=== PATIENT | female | born 1965 | race Caucasian/White ===

== ENCOUNTER 2019-04-17 08:40 | Day surgery (SDC) | payer OTHER ==
[2019-04-17 09:02] LABS: PTT 28.5 SEC (22.9-36.1); Prothrombin Time 13.1 SEC (12.0-14.7)
[2019-04-17 11:38] VITALS: BP 146/81; TEMP 98.2
--- NOTE | 2019-04-17 13:09 | CT ---
CT-guided bone marrow biopsy HISTORY: Leukocytosis. FINDINGS: After explaining the procedure and answering all questions, limited CT imaging of the pelvi s was performed with patient prone. Sterile technique, buffered local anesthesia, CT guidance, and a posterior approach were used to carefully advance an 11-gauge bone biopsy needle to the posterior c ortex of the left iliac bone. Position was confirmed with CT. Blood aspirate was obtained and submitted to pathology. Core bone specimen was then obtained and subm itted to pathology. Postprocedure imaging shows no evidence of complication. Patient tolerated the procedure well and was eventually dismissed in good condition. IMPRESSION: Technically successful CT-guided bone marrow aspiration/biopsy. Pathology is pending.
== END 2019-04-17 12:00 | disposition home or self-care (01) ==
LOC: CT 08:40
PROVIDERS: ATTEND Internal Medicine Hematology & Oncology
PROC: 07DR3ZX Extraction of Iliac Bone Marrow, Percutaneous Approach, Diagnostic (ICD-10-PCS; principal; 2019-04-17)
DX: D72.829 Elevated white blood cell count, unspecified (principal); I10 Essential (primary) hypertension; E11.9 Type 2 diabetes mellitus without complications; E78.5 Hyperlipidemia, unspecified; F41.9 Anxiety disorder, unspecified; E66.9 Obesity, unspecified; Z87.891 Personal history of nicotine dependence
CPT/HCPCS: 20225; 36415; 77012; 85097; 85610; 85730; 88184; 88237; 88305; 88311; 88313

== ENCOUNTER 2019-06-05 09:51 | Outpatient (CLI) | payer OTHER | END 2019-06-05 09:52 | disposition home or self-care (01) | LOC: EKG 09:51 | PROVIDERS: ATTEND Internal Medicine Hematology & Oncology | DX: Z51.81 Encounter for therapeutic drug level monitoring (principal); C92.40 Acute promyelocytic leukemia, not having achieved remission | CPT/HCPCS: 93005; 93010 ==

== ENCOUNTER 2019-06-12 09:22 | Outpatient (CLI) | payer OTHER ==
--- NOTE | 2019-06-12 14:01 | EKG ---
Test Reason : Blood Pressure : / mmHG Vent. Rate : 094 BPM Atrial Rate : 094 BPM P-R Int : 132 ms QRS Dur : 074 ms QT Int : 354 ms P-R-T Axes : 050 012 010 degrees QTc Int : 442 ms Normal sinus rhythm Nonspecific T wave abnormality Abnormal ECG Confirmed by HERMELINDO JUÁREZ (57) on 06/12/2019 2:00:47 PM Referred By: BEKAH Confirmed By:HERMELINDO JUÁREZ
== END 2019-06-12 09:23 | disposition home or self-care (01) ==
LOC: EKG 09:22
PROVIDERS: ATTEND Internal Medicine Hematology & Oncology
DX: Z51.81 Encounter for therapeutic drug level monitoring (principal); C92.40 Acute promyelocytic leukemia, not having achieved remission
CPT/HCPCS: 80053; 83735; 84100; 84550; 93005; 93010

== ENCOUNTER 2019-06-19 09:56 | Outpatient (CLI) | payer OTHER ==
--- NOTE | 2019-06-19 16:36 | EKG ---
Test Reason : Blood Pressure : / mmHG Vent. Rate : 089 BPM Atrial Rate : 089 BPM P-R Int : 140 ms QRS Dur : 074 ms QT Int : 372 ms P-R-T Axes : 027 009 005 degrees QTc Int : 452 ms Normal sinus rhythm Normal ECG When compared with ECG of 12-JUN-2019 10:00, No significant change was found Confirmed by DR. Pamela BAUM (3) on 06/19/2019 4:35:55 PM Referred By: BEKAH Confirmed By:DR. Pamela BAUM
== END 2019-06-19 09:57 | disposition home or self-care (01) ==
LOC: EKG 09:56
PROVIDERS: ATTEND Internal Medicine Hematology & Oncology
DX: Z51.81 Encounter for therapeutic drug level monitoring (principal); C92.40 Acute promyelocytic leukemia, not having achieved remission; Z79.899 Other long term (current) drug therapy
CPT/HCPCS: 80053; 83735; 84100; 93005; 93010

== ENCOUNTER 2019-06-26 09:55 | Outpatient (CLI) | payer OTHER ==
--- NOTE | 2019-07-01 17:43 | EKG ---
Test Reason : Blood Pressure : / mmHG Vent. Rate : 094 BPM Atrial Rate : 094 BPM P-R Int : 132 ms QRS Dur : 072 ms QT Int : 382 ms P-R-T Axes : 057 011 025 degrees QTc Int : 477 ms Normal sinus rhythm Normal ECG When compared with ECG of 19-JUN-2019 10:05, No significant change was found Confirmed by DR. Benji SHAH ([id number]) on 07/01/2019 5:42:50 PM Referred By: BEKAH Confirmed By:DR. Benji SHAH
== END 2019-06-26 09:56 | disposition home or self-care (01) ==
LOC: EKG 09:55
PROVIDERS: ATTEND Internal Medicine Hematology & Oncology
DX: Z51.81 Encounter for therapeutic drug level monitoring (principal); C92.40 Acute promyelocytic leukemia, not having achieved remission; Z79.899 Other long term (current) drug therapy
CPT/HCPCS: 80053; 83735; 84100; 93005; 93010

== ENCOUNTER 2019-07-01 10:51 | Outpatient (CLI) | payer OTHER | END 2019-07-01 10:52 | disposition home or self-care (01) | LOC: EKG 10:51 | PROVIDERS: ATTEND Internal Medicine Hematology & Oncology | DX: Z51.81 Encounter for therapeutic drug level monitoring (principal); C92.40 Acute promyelocytic leukemia, not having achieved remission; D72.818 Other decreased white blood cell count | CPT/HCPCS: 80053; 83735; 84100; 93005; 93010 ==

== ENCOUNTER 2019-07-09 08:04 | Day surgery (SDC) | payer OTHER ==
[2019-07-08 10:21] VITALS: BMI 37.3
[2019-07-09] MEDS ORDERED: Ketorolac Tromethamine 30 MG/ML VIAL ONE (08:39)
[2019-07-09] MEDS ORDERED: Acetaminophen 500 MG TAB ONE (08:39)
[2019-07-09] MEDS ORDERED: Bupivacaine 0.25% HCL 30 ML VIAL ONE ×2 (08:56→12:02)
[2019-07-09] MEDS ORDERED: Lidocaine 1% w/Epinephrine 1:100K 20 ML VIAL ONE (08:56)
[2019-07-09 10:01] LABS: Hemoglobin 11.6 g/dL (12.0-16.0); Mean Corpuscular HGB CONC 32.9 g/dL (32.0-36.0); Mean Corpuscular Hemoglobin 32.1 pg (27.0-31.0); Mean Corpuscular Volume 97.6 fL (78.0-98.0); Mean Platelet Volume 9.1 fL (7.4-10.4); Platelet Count 245 thou/uL (130-400); RBC Distribution Width 15.5 % (11.5-14.5); Red Blood Cell (RBC) Count 3.62 mill/uL (4.20-5.40); White Blood Cell (WBC) Count 3.7 thou/uL (4.8-10.8)
[2019-07-09 10:30] LABS: Anion Gap 12 mmol/L (10-20); BUN (Urea Nitrogen) 8 mg/dL (9.8-20.1); Calc. Creatinine Clearance 154 mL/min (70-130); Calcium 8.7 mg/dL (7.8-10.44); Carbon Dioxide 24 mmol/L (22-29); Chloride 109 mmol/L (98-107); Estimated GFR-MDRD Greater than 90; Glucose 91 mg/dL (70-105); Potassium 4.3 mmol/L (3.5-5.1); Sodium 141 mmol/L (136-145)
[2019-07-09] MEDS ORDERED: Midazolam HCl 2 mg/2 ml Vial ONE (11:35)
[2019-07-09] MEDS ORDERED: Propofol 500 MG/50 ML VIAL ONE (11:43)
[2019-07-09] MEDS ORDERED: Lidocaine 2% PF 5 ML VIAL ONE (12:02)
--- NOTE | 2019-07-09 13:05 | RAD ---
Chest AP view INDICATION: Postop chest for Mediport placement COMPARISON: None FINDINGS: Lungs:The lungs are clear Cardiac silhouette:Heart size is normal. There is a right subclavian chest wall port in place. The ti p of the catheter seen at the caval atrial junction. There is a right-sided PICC line in place. Pulmonary vasculature:Normal Pleural spaces:No pleural effusion or pneumothorax is demonstrated. Upper abdomen:No abnormality seen. Osseous structures: No acute osseous abnormality. Additional findings:None. IMPRESSION: No acute cardiopulmonary abnormality. Right subclavian chest wall port. No pneumothorax. Right-sided PICC line.
--- NOTE | 2019-07-10 00:03 | OP ---
DATE OF PROCEDURE: 07/09/2019 PREOPERATIVE DIAGNOSIS: Leukemia. POSTOPERATIVE DIAGNOSIS: Leukemia. OPERATION PERFORMED: Placement of standard size right subclavian power compatible MediPort. ANESTHESIA: Total intravenous anesthesia with local using 0.25% Marcaine with epinephrine. INDICATIONS: The patient is a 53-year-old white female. She is taken to the operative room at this time for port placement for chemotherapy administration. DESCRIPTION OF OPERATION: Informed consent was obtained. The patient was taken to the operating room where total intravenous anesthesia was obtained with the patient in supine position. Periclavicular area was prepped with ChloraPrep and draped in sterile fashion. Local anesthetic was infiltrated and a large-gauge needle was passed under the clavicle in the subclavian vein. Guidewire was passed through the needle and fluoroscopically confirmed to enter the superior vena cava. Additional local anesthetic was infiltrated and transverse incision was created based on needle insertion site. A subcutaneous pocket was dissected inferiorly. Introducer dilator was passed over the guidewire under fluoroscopic guidance. The guidewire and dilator were removed, and the catheter was passed through the introducer. The tip of the catheter was positioned at the atriocaval junction and the catheter was trimmed to the appropriate length and secured to the locking hub of the MediPort. The port was then placed in the subcutaneous pocket where it was secured to the pectoral fascia with 2 interrupted sutures of 3-0 Prolene. The incision was then closed in layers with 3-0 and 4-0 Monocryl. Additional local anesthetic was infiltrated. The port was cannulated with a Perkins needle and it aspirated blood freely and was flushed with heparinized saline. Dermabond was placed externally on the skin incision. There were no complications. Blood loss was negligible. The patient tolerated the procedure well and was taken to recovery room in stable condition. FINDINGS: A standard size power compatible port was selected secondary to the patient's body habitus. This was placed in the right subclavian vein uneventfully. The fluoroscopy was used throughout the procedure. There were no complications and essentially no blood loss. The patient tolerated the procedure well. Job ID: [id number]
== END 2019-07-09 13:35 | disposition home or self-care (01) ==
LOC: SDC 08:04
PROVIDERS: ATTEND Specialist
PROC: 02HV33Z Insertion of Infusion Device into Superior Vena Cava, Percutaneous Approach (ICD-10-PCS; principal; 2019-07-09)
DX: C92.40 Acute promyelocytic leukemia, not having achieved remission (principal); Z79.899 Other long term (current) drug therapy; Z87.891 Personal history of nicotine dependence
CPT/HCPCS: 71045; 80048; 85027; C1788; J0690; J1642; J1885; J2001; J2250; J2704; S0020

== ENCOUNTER 2019-07-31 09:58 | Outpatient (CLI) | payer OTHER | END 2019-07-31 09:59 | disposition home or self-care (01) | LOC: EKG 09:58 | PROVIDERS: ATTEND Internal Medicine Hematology & Oncology | DX: Z51.81 Encounter for therapeutic drug level monitoring (principal); C92.40 Acute promyelocytic leukemia, not having achieved remission | CPT/HCPCS: 93005; 93010 ==

== ENCOUNTER 2019-08-07 13:33 | Outpatient (CLI) | payer OTHER ==
--- NOTE | 2019-08-11 09:38 | EKG ---
Test Reason : S/P CARDIOVERSION Blood Pressure : / mmHG Vent. Rate : 058 BPM Atrial Rate : 058 BPM P-R Int : 170 ms QRS Dur : 090 ms QT Int : 466 ms P-R-T Axes : -19 033 -02 degrees QTc Int : 457 ms Sinus bradycardia Otherwise normal ECG Confirmed by HERMELINDO JUÁREZ (57) on 08/11/2019 9:38:10 AM Referred By: BUSHRA Confirmed By:HERMELINDO JUÁREZ
== END 2019-08-07 13:34 | disposition home or self-care (01) ==
LOC: EKG 13:33
PROVIDERS: ATTEND Internal Medicine Hematology & Oncology
DX: Z51.81 Encounter for therapeutic drug level monitoring (principal); C92.40 Acute promyelocytic leukemia, not having achieved remission; Z79.899 Other long term (current) drug therapy
CPT/HCPCS: 80053; 83735; 84100; 84550; 93005; 93010

== ENCOUNTER 2019-08-10 09:59 | Outpatient (CLI) | payer OTHER ==
--- NOTE | 2019-08-11 09:58 | EKG ---
Test Reason : CLEARANCE FOR MEDS Blood Pressure : / mmHG Vent. Rate : 086 BPM Atrial Rate : 086 BPM P-R Int : 138 ms QRS Dur : 088 ms QT Int : 394 ms P-R-T Axes : 051 008 011 degrees QTc Int : 471 ms Normal sinus rhythm Normal ECG Confirmed by HERMELINDO JUÁREZ (57) on 08/11/2019 9:58:00 AM Referred By: BEKAH Confirmed By:HERMELINDO JUÁREZ
== END 2019-08-10 10:00 | disposition home or self-care (01) ==
LOC: EKG 09:59
PROVIDERS: ATTEND Internal Medicine Hematology & Oncology
DX: Z51.81 Encounter for therapeutic drug level monitoring (principal); C92.40 Acute promyelocytic leukemia, not having achieved remission; Z79.899 Other long term (current) drug therapy
CPT/HCPCS: 36415; 80053; 83735; 84100; 84550; 93005; 93010

== ENCOUNTER 2019-08-14 14:25 | Outpatient (CLI) | payer OTHER ==
--- NOTE | 2019-08-17 16:56 | EKG ---
Test Reason : Blood Pressure : / mmHG Vent. Rate : 078 BPM Atrial Rate : 078 BPM P-R Int : 132 ms QRS Dur : 076 ms QT Int : 428 ms P-R-T Axes : 040 014 018 degrees QTc Int : 487 ms Normal sinus rhythm Prolonged QT Abnormal ECG When compared with ECG of 10-AUG-2019 10:29, Nonspecific T wave abnormality has replaced inverted T waves in Inferior leads Confirmed by DR. Pamela BAUM ([id number]) on 08/17/2019 4:55:50 PM Referred By: BEKAH Confirmed By:DR. Pamela BAUM
== END 2019-08-14 14:26 | disposition home or self-care (01) ==
LOC: EKG 14:25
PROVIDERS: ATTEND Internal Medicine Hematology & Oncology
DX: Z51.81 Encounter for therapeutic drug level monitoring (principal); C92.40 Acute promyelocytic leukemia, not having achieved remission; Z79.899 Other long term (current) drug therapy
CPT/HCPCS: 80053; 83735; 84100; 84550; 93005; 93010

== ENCOUNTER 2019-08-17 09:58 | Outpatient (CLI) | payer OTHER ==
--- NOTE | 2019-08-20 08:19 | EKG ---
Test Reason : Blood Pressure : / mmHG Vent. Rate : 077 BPM Atrial Rate : 077 BPM P-R Int : 142 ms QRS Dur : 074 ms QT Int : 406 ms P-R-T Axes : 035 009 007 degrees QTc Int : 459 ms Normal sinus rhythm Normal ECG When compared with ECG of 14-AUG-2019 14:31, (Unconfirmed) No significant change was found Confirmed by DR. Benji SHAH ([id number]) on 08/20/2019 8:18:53 AM Referred By: BEKAH Confirmed By:DR. Benji SHAH
== END 2019-08-17 09:59 | disposition home or self-care (01) ==
LOC: EKG 09:58
PROVIDERS: ATTEND Internal Medicine Hematology & Oncology
DX: Z51.81 Encounter for therapeutic drug level monitoring (principal); C92.40 Acute promyelocytic leukemia, not having achieved remission; Z79.899 Other long term (current) drug therapy
CPT/HCPCS: 80053; 83735; 84100; 84550; 93005; 93010

== ENCOUNTER 2019-08-21 10:03 | Outpatient (CLI) | payer OTHER | END 2019-08-21 10:04 | disposition home or self-care (01) | LOC: EKG 10:03 | PROVIDERS: ATTEND Internal Medicine Hematology & Oncology | DX: Z51.81 Encounter for therapeutic drug level monitoring (principal); C92.40 Acute promyelocytic leukemia, not having achieved remission; Z79.899 Other long term (current) drug therapy | CPT/HCPCS: 80053; 83735; 84100; 84550; 93005; 93010 ==

== ENCOUNTER 2019-08-24 09:27 | Outpatient (CLI) | payer OTHER | END 2019-08-24 09:28 | disposition home or self-care (01) | LOC: EKG 09:27 | PROVIDERS: ATTEND Internal Medicine Hematology & Oncology | DX: Z51.81 Encounter for therapeutic drug level monitoring (principal); C92.40 Acute promyelocytic leukemia, not having achieved remission; Z79.899 Other long term (current) drug therapy | CPT/HCPCS: 80053; 82248; 83615; 83735; 84100; 84550; 93005; 93010 ==

== ENCOUNTER 2019-09-28 09:45 | Outpatient (CLI) | payer OTHER ==
--- NOTE | 2019-09-30 14:25 | EKG ---
Test Reason : Blood Pressure : / mmHG Vent. Rate : 070 BPM Atrial Rate : 070 BPM P-R Int : 156 ms QRS Dur : 082 ms QT Int : 386 ms P-R-T Axes : 039 013 010 degrees QTc Int : 416 ms Normal sinus rhythm Normal ECG Confirmed by HERMELINDO JUÁREZ (57) on 09/30/2019 2:25:38 PM Referred By: BEKAH Confirmed By:HERMELINDO JUÁREZ
== END 2019-09-28 09:46 | disposition home or self-care (01) ==
LOC: EKG 09:45
PROVIDERS: ATTEND Internal Medicine Hematology & Oncology
DX: Z51.81 Encounter for therapeutic drug level monitoring (principal); C92.40 Acute promyelocytic leukemia, not having achieved remission; Z79.899 Other long term (current) drug therapy
CPT/HCPCS: 36415; 80053; 83735; 84100; 84550; 93005; 93010

== ENCOUNTER 2019-10-05 11:42 | Outpatient (CLI) | payer OTHER ==
--- NOTE | 2019-10-06 07:16 | EKG ---
Test Reason : Blood Pressure : / mmHG Vent. Rate : 076 BPM Atrial Rate : 076 BPM P-R Int : 146 ms QRS Dur : 078 ms QT Int : 392 ms P-R-T Axes : 051 018 003 degrees QTc Int : 441 ms Normal sinus rhythm Normal ECG When compared with ECG of 28-SEP-2019 09:52, No significant change was found Confirmed by DR. Pamela BAUM (3) on 10/06/2019 7:16:31 AM Referred By: BEKAH Confirmed By:DR. Pamela BAUM
== END 2019-10-05 11:43 | disposition home or self-care (01) ==
LOC: EKG 11:42
PROVIDERS: ATTEND Internal Medicine Hematology & Oncology
DX: Z51.81 Encounter for therapeutic drug level monitoring (principal); C92.40 Acute promyelocytic leukemia, not having achieved remission; Z79.899 Other long term (current) drug therapy
CPT/HCPCS: 80053; 83735; 84100; 84550; 93005; 93010

== ENCOUNTER 2019-10-12 09:53 | Outpatient (CLI) | payer OTHER ==
--- NOTE | 2019-10-12 17:00 | EKG ---
Test Reason : Blood Pressure : / mmHG Vent. Rate : 080 BPM Atrial Rate : 080 BPM P-R Int : 132 ms QRS Dur : 072 ms QT Int : 398 ms P-R-T Axes : 055 012 013 degrees QTc Int : 459 ms Normal sinus rhythm Normal ECG When compared with ECG of 05-OCT-2019 11:55, No significant change was found Confirmed by DR. Benji SHAH ([id number]) on 10/12/2019 5:00:01 PM Referred By: BEKAH Confirmed By:DR. Benji SHAH
== END 2019-10-12 09:54 | disposition home or self-care (01) ==
LOC: EKG 09:53
PROVIDERS: ATTEND Internal Medicine Hematology & Oncology
DX: Z51.81 Encounter for therapeutic drug level monitoring (principal); C92.40 Acute promyelocytic leukemia, not having achieved remission; Z79.899 Other long term (current) drug therapy
CPT/HCPCS: 36415; 80053; 83735; 84100; 84550; 93005; 93010

== ENCOUNTER 2019-10-19 09:21 | Outpatient (CLI) | payer OTHER ==
--- NOTE | 2019-10-25 15:27 | EKG ---
Test Reason : Blood Pressure : / mmHG Vent. Rate : 084 BPM Atrial Rate : 084 BPM P-R Int : 136 ms QRS Dur : 078 ms QT Int : 388 ms P-R-T Axes : 044 015 010 degrees QTc Int : 458 ms Normal sinus rhythm Normal ECG When compared with ECG of 12-OCT-2019 10:30, No significant change was found Confirmed by LES CALIX (2) on 10/25/2019 3:27:27 PM Referred By: BEKAH Confirmed By:LES CALIX
== END 2019-10-19 09:22 | disposition home or self-care (01) ==
LOC: EKG 09:21
PROVIDERS: ATTEND Internal Medicine Hematology & Oncology
DX: Z51.81 Encounter for therapeutic drug level monitoring (principal); C92.40 Acute promyelocytic leukemia, not having achieved remission; Z79.899 Other long term (current) drug therapy
CPT/HCPCS: 80053; 83735; 84100; 84550; 93005; 93010

== ENCOUNTER 2019-11-23 09:57 | Outpatient (CLI) | payer OTHER ==
--- NOTE | 2019-11-24 11:38 | EKG ---
Test Reason : Blood Pressure : / mmHG Vent. Rate : 068 BPM Atrial Rate : 068 BPM P-R Int : 148 ms QRS Dur : 086 ms QT Int : 402 ms P-R-T Axes : 046 012 014 degrees QTc Int : 427 ms Normal sinus rhythm Moderate voltage criteria for LVH, may be normal variant Borderline ECG Confirmed by HERMELINDO JUÁREZ (57) on 11/24/2019 11:38:06 AM Referred By: BEKAH Confirmed By:HERMELINDO JUÁREZ
== END 2019-11-23 09:58 | disposition home or self-care (01) ==
LOC: EKG 09:57
PROVIDERS: ATTEND Internal Medicine Hematology & Oncology
DX: Z51.81 Encounter for therapeutic drug level monitoring (principal); C92.40 Acute promyelocytic leukemia, not having achieved remission; D72.818 Other decreased white blood cell count; Z79.899 Other long term (current) drug therapy
CPT/HCPCS: 80053; 83735; 84100; 84550; 93005; 93010

== ENCOUNTER 2019-11-30 09:31 | Outpatient (CLI) | payer OTHER ==
--- NOTE | 2019-11-30 14:20 | EKG ---
Test Reason : Blood Pressure : / mmHG Vent. Rate : 089 BPM Atrial Rate : 089 BPM P-R Int : 146 ms QRS Dur : 076 ms QT Int : 376 ms P-R-T Axes : 053 013 008 degrees QTc Int : 457 ms Normal sinus rhythm Normal ECG When compared with ECG of 23-NOV-2019 10:22, No significant change was found Confirmed by DR. Pamela BAUM (3) on 11/30/2019 2:20:05 PM Referred By: BEKAH Confirmed By:DR. Pamela BAUM
== END 2019-11-30 09:32 | disposition home or self-care (01) ==
LOC: EKG 09:31
PROVIDERS: ATTEND Internal Medicine Hematology & Oncology
DX: Z51.81 Encounter for therapeutic drug level monitoring (principal); C92.40 Acute promyelocytic leukemia, not having achieved remission; Z79.899 Other long term (current) drug therapy
CPT/HCPCS: 36415; 80053; 83735; 84100; 84550; 93005; 93010

== ENCOUNTER 2019-12-07 09:01 | Outpatient (CLI) | payer OTHER ==
--- NOTE | 2019-12-10 07:49 | EKG ---
Test Reason : Blood Pressure : / mmHG Vent. Rate : 083 BPM Atrial Rate : 083 BPM P-R Int : 136 ms QRS Dur : 076 ms QT Int : 384 ms P-R-T Axes : 051 017 016 degrees QTc Int : 451 ms Normal sinus rhythm Normal ECG When compared with ECG of 30-NOV-2019 09:51, No significant change was found Confirmed by DR. Benji SHAH ([id number]) on 12/10/2019 7:49:26 AM Referred By: BEKAH Confirmed By:DR. Benji SHAH
== END 2019-12-07 09:02 | disposition home or self-care (01) ==
LOC: EKG 09:01
PROVIDERS: ATTEND Internal Medicine Hematology & Oncology
DX: Z51.81 Encounter for therapeutic drug level monitoring (principal); C92.40 Acute promyelocytic leukemia, not having achieved remission; Z79.899 Other long term (current) drug therapy
CPT/HCPCS: 36415; 80053; 83735; 84100; 84550; 93005; 93010

== ENCOUNTER 2019-12-14 09:03 | Outpatient (CLI) | payer OTHER ==
--- NOTE | 2019-12-16 17:58 | EKG ---
Test Reason : Blood Pressure : / mmHG Vent. Rate : 079 BPM Atrial Rate : 079 BPM P-R Int : 142 ms QRS Dur : 080 ms QT Int : 404 ms P-R-T Axes : 041 009 001 degrees QTc Int : 463 ms Normal sinus rhythm Normal ECG When compared with ECG of 07-DEC-2019 09:26, No significant change was found Confirmed by LES CALIX (2) on 12/16/2019 5:57:37 PM Referred By: BEKAH Confirmed By:LES CALIX
== END 2019-12-14 09:04 | disposition home or self-care (01) ==
LOC: EKG 09:03
PROVIDERS: ATTEND Internal Medicine Hematology & Oncology
DX: Z51.81 Encounter for therapeutic drug level monitoring (principal); C92.40 Acute promyelocytic leukemia, not having achieved remission; Z79.899 Other long term (current) drug therapy
CPT/HCPCS: 36415; 80053; 83735; 84100; 84550; 93005; 93010